=== PATIENT | female | born 1980 | race Caucasian/White ===

== ENCOUNTER 2017-07-09 07:55 | Emergency (ER) | payer BC ==
[2017-07-09] MEDS ORDERED: Sodium Chloride 0.9% 500 ML IV ONE (08:29)
--- NOTE | 2017-07-09 09:10 | EDM.PDOC ---
ED HPI GENERAL MEDICAL PROBLEM - General Chief Complaint: Cardiovascular Problem Stated Complaint: FAST HEART RATE/SOB Time Seen by Provider: 07/09/17 08:19 Source of Information: Reports: Patient, RN Notes Reviewed - History of Present Illness INITIAL COMMENTS - FREE TEXT/NARRATIVE: 37 year old female with palpiatations, tachycardia, passed out once during the night. She had been up to use the bathroom. 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 Hgb 8 yesterday at clinic. The plan is to have a blood transfusion Tuesday back home in [place]. [place] family this weekend. NO chest or abd pain. Mouth does feel dry. Has not been vomiting. appetite is down but drinking some fluids. - Related Data Allergies Allergy/AdvReac Type Severity Reaction Status Date / Time No Known Allergies Allergy Verified 07/09/17 08:08 Home Meds: Home Meds Apixaban [Eliquis] 5 mg PO BID 07/09/17 [History] Levofloxacin [Levaquin] 750 mg PO DAILY 07/09/17 [History] Past Medical History Oncologic (Cancer) History: Reports: Other (See Below) Other Oncologic History: sarcoma ED ROS GENERAL - Review of Systems Review Of Systems: See Below Constitutional: Denies: Fever, Chills HEENT: Reports: Throat Pain (mild, improving) Respiratory: Denies: Shortness of Breath, Cough Cardiovascular: Denies: Chest Pain GI/Abdominal: Reports: Decreased Appetite. Denies: Abdominal Pain, Diarrhea, Nausea, Vomiting Skin: Denies: Bruising, Rash Neurological: Reports: Dizziness, Syncope, Weakness (generalized) ED EXAM, GENERAL - Physical Exam Exam: See Below General Appearance: Alert, No Apparent Distress Eye Exam: Bilateral Eye: PERRL Throat/Mouth: Normal Inspection Head: Atraumatic Neck: Supple, Full Range of Motion Respiratory/Chest: No Respiratory Distress, Lungs Clear, Normal Breath Sounds Cardiovascular: Tachycardia GI/Abdominal: Non-Tender Neurological: Alert, Oriented, No Motor/Sensory Deficits Skin Exam: Warm, Dry, Pallor Course - Vital Signs Last Recorded V/S: Last Vital Signs Temp 98.5 F 03/17/18 08:02 Pulse 154 H 07/09/17 08:02 Resp 16 07/09/17 08:02 BP Pulse Ox 100 07/09/17 08:02 - Orders/Labs/Meds Labs: Laboratory Tests 07/09/17 07/09/17 Range/Units 08:55 08:55 WBC 0.10 L* (3.98-10.04) K/mm3 RBC 2.46 L (3.98-5.22) M/mm3 Hgb 7.0 L* (11.2-15.7) gm/L Hct 20.4 L (34.1-44.9) % MCV 82.9 (79.4-94.8) fl MCH 28.5 (25.6-32.2) pg MCHC 34.3 (32.2-35.5) g/dl RDW Std Deviation 41.4 (36.4-46.3) fL Plt Count 23 L* (182-369) K/mm3 MPV 9.9 (9.4-12.3) fl Neut % (Auto) Cancelled Lymph % (Auto) Cancelled Nash % (Auto) Cancelled Eos % (Auto) Cancelled Baso % (Auto) Cancelled Neut # (Auto) Cancelled Lymph # (Auto) Cancelled Nash # (Auto) Cancelled Eos # (Auto) Cancelled Baso # (Auto) Cancelled Neutrophils % (Manual) 0 L (40-60) % Band Neutrophils % 0 (0-10) % Lymphocytes % (Manual) 88 H (20-40) % Atypical Lymphs % 0 % Monocytes % (Manual) 12 H (2-10) % Eosinophils % (Manual) 0 L (0.7-5.8) % Basophils % (Manual) 0 L (0.1-1.2) Differential Comment See note Manual Slide Review Cancelled Platelet Estimate See note Polychromasia 1+ slight Anisocytosis 1+ slight RBC Morph Comment Not Reportable Sodium 135 L (136-145) mEq/L Potassium 3.6 (3.5-5.1) mEq/L Chloride 102 (98-107) mEq/L Carbon Dioxide 25 (21-32) mEq/L Anion Gap 11.6 (5-15) BUN 15 (7-18) mg/dL Creatinine 0.7 (0.55-1.02) mg/dL Est Cr Clr Drug Dosing 109.92 mL/min Estimated GFR (MDRD) > 60 (>60) mL/min BUN/Creatinine Ratio 21.4 H (14-18) Glucose 110 H (74-106) mg/dL Calcium 8.9 (8.5-10.1) mg/dL Total Bilirubin 2.1 H (0.2-1.0) mg/dL AST 12 L (15-37) U/L ALT 26 (14-59) U/L Alkaline Phosphatase 66 (46-116) U/L Total Protein 6.5 (6.4-8.2) g/dl Albumin 3.3 L (3.4-5.0) g/dl Globulin 3.2 gm/dL Albumin/Globulin Ratio 1.0 (1-2) Meds: Medications Discontinued Medications Generic Name Dose Route Start Last Admin Trade Name Freq PRN Reason Stop Dose Admin Sodium Chloride 500 mls @ 999 mls/hr 07/09/17 08:29 07/09/17 09:05 Normal Saline IV 07/09/17 08:59 999 mls/hr .BOLUS ONE Administration - Re-Assessments/Exams Free Text/Narrative Re-Assessment/Exam: 07/09/17 11:58 Hgb came back at 7, have given 500 NS boluls, heart rate down to 102, she feels better, Have discussed with Dr Coronel", Oncologist Jen, Dr Hernandez, Hospitalist. We are going to seen her to [facility] ED this morning, will get blood transfusion there, neupogen, should be able to go home after that. Departure - Departure Time of Disposition: 09:51 Disposition: Home, Self-Care 01 Condition: Fair Clinical Impression: Thrombocytopenia Anemia Qualifiers: Anemia type: unspecified type Qualified Code(s): D64.9 - Anemia, unspecified Neutropenia Qualifiers: Neutropenia type: secondary to cancer chemotherapy Qualified Code(s): D70.1 - Agranulocytosis secondary to cancer chemotherapy Instructions: Anemia, Neutropenia Referrals: PCP,Not In Area [Primary Care Provider] - Forms: ED Department Discharge Additional Instructions: transfer to [facility] ED, they will give you blood there. They will be expecting you. If you do get weak or dizzy sitting or standing be sure to get your head down, best to lie down so you do not fall or hurt your self.
== END 2017-07-09 10:12 | disposition home or self-care (01) ==
LOC: JD.ED 07:55
DX: C76.51 Malignant neoplasm of right lower limb (principal); D70.1 Agranulocytosis secondary to cancer chemotherapy; D63.0 Anemia in neoplastic disease; D69.6 Thrombocytopenia, unspecified; Z79.899 Other long term (current) drug therapy
CPT/HCPCS: 36415; 80053; 85025; 96360; 99285; J7040; 99284